=== PATIENT | female | born 1975 | race Two or more races ===

== ENCOUNTER 2024-10-23 18:07 | Inpatient (IN) | payer OTHER ==
[~2024-10-23] VITALS: Ht 154.9 cm; Wt 60.3 kg
[2024-10-23] MEDS ORDERED: ELIQUIS5 MG PO (18:58)
[2024-10-23] MEDS ORDERED: COZAAR25 MG PO (18:59)
[2024-10-23] MEDS ORDERED: ROSUVASTATIN CA10 MG PO (18:59)
[2024-10-23] MEDS ORDERED: 0.9 % SODIUM CHLORIDE 1,000 ML IV STA (19:42)
[2024-10-23] MEDS ORDERED: ONDANSETRON HCL 2 MG/ML VIAL IV STA (19:43)
[2024-10-23] MEDS ORDERED: MEPERIDINE HCL/PF 25 MG/ML VIAL IV ONE ×2 (19:45→23:15)
[2024-10-23] MEDS ORDERED: ONDANSETRON HCL 2 MG/ML VIAL ONE (19:49)
[2024-10-23] MEDS ORDERED: BARIUM SULFATE 450 ML ORAL.SUSP PO ONE (19:53)
[2024-10-23 20:08] LABS: HEMOGLOBIN 13.2 g/dL (12.0-15.00); MEAN CORPUSCULAR HEMOGLOBIN 32.4 pg (27.00-32.0); MEAN CORPUSCULAR HGB CONC 34.8 g/dl (32.0-36.0); PLATELET COUNT 303 K/uL (150-450); RED BLOOD COUNT 4.08 M/uL (4.00-6.00); RED CELL DISTRIBUTION WIDTH 13.4 % (11.5-14.5)
[2024-10-23 20:34] LABS: CALCIUM 9.9 mg/dL (8.5-10.1); CREATININE SERUM 0.83 mg/dL (0.55-1.02); GFR 72.47; POTASSIUM 3.83 mEq/L (3.5-5.1)
[2024-10-23] MEDS ORDERED: METRONIDAZOLE/SODIUM CHLORIDE 500 MG/100 ML PIGGYBACK IV ONE (23:00)
[2024-10-23] MEDS ORDERED: CIPROFLOXACIN IN 5 % DEXTROSE 400 MG/200 ML PIGGYBAG IV ONE (23:00)
[2024-10-23] MEDS ORDERED: HYOSCYAMINE SULFATE 0.125 MG TAB.SUBL PO ONE (23:30)
[2024-10-23] MEDS ORDERED: MORPHINE SULFATE 4 MG/ML CARTRIDGE IV PRN (23:30)
[2024-10-23] MEDS ORDERED: ACETAMINOPHEN 500 MG GEL..CAP PO PRN (23:30)
[2024-10-23] MEDS ORDERED: 0.9 % SODIUM CHLORIDE 1,000 ML IV SCH (23:30)
[2024-10-23] MEDS ORDERED: KETOROLAC TROMETHAMINE 15 MG VIAL IU ONE (23:30)
[2024-10-24] MEDS ORDERED: METRONIDAZOLE/SODIUM CHLORIDE 100 ML IV SCH (01:00)
[2024-10-24] MEDS ORDERED: HYOSCYAMINE SULFATE 0.125 MG TAB.SUBL ONE (01:19)
[2024-10-24 04:58] LABS: INR 1.11
[2024-10-24] MEDS ORDERED: APIXABAN 5 MG TABLET PO SCH (05:00)
[2024-10-24 06:09] LABS: PARTIAL THROMBOPLASTIN TIME < 20.0 SECONDS (22.0-34.0)
[2024-10-24] MEDS ORDERED: FAMOTIDINE/PF 20 MG/2 ML VIAL ONE (07:55)
[2024-10-24 08:36] VITALS: BP 139/79
[2024-10-24] MEDS ORDERED: CIPROFLOXACIN IN 5 % DEXTROSE 200 ML IV SCH (09:00)
[2024-10-24] MEDS ORDERED: FAMOTIDINE/PF 20 MG in 0.9 % SODIUM CHLORIDE 8 ML IV PUSH SCH (09:00)
[2024-10-24] MEDS ORDERED: LOSARTAN POTASSIUM 25 MG TABLET PO SCH (09:00)
[2024-10-24] MEDS ORDERED: ATORVASTATIN CALCIUM 20 MG TABLET PO SCH (09:00)
[2024-10-24 16:55] VITALS: BP 108/65
[2024-10-24 21:15] LABS: URINE APPEARANCE Clear; URINE BILIRRUBIN Negative (NEGATIVE); URINE BLOOD Negative; URINE COLOR Yellow; URINE GLUCOSE Negative (NEGATIVE); URINE KETONE 15 (NEGATIVE); URINE LEUKOCYTE Negative; URINE NITRATE Negative; URINE PROTEIN Negative (NEGATIVE)
[2024-10-24 21:18] LABS: URINE BACTERIA 26.9 uL (0.0-1933); URINE EPITHELIAL CELLS 17.8 uL (0.0-38.8); URINE RBC 9.1 uL (0.0-20.8); URINE WBC 5.6 uL (0.0-23.2)
[2024-10-24 21:21] LABS: URINE CAST 0.73 uL (0.0-1.40)
[2024-10-25 01:16] VITALS: BP 138/76; O2SAT 99
[2024-10-25 08:38] VITALS: BP 124/85; O2SAT 98
[2024-10-25] MEDS ORDERED: ONDANSETRON HCL 2 MG/ML VIAL IV PRN (11:00)
[2024-10-25 11:35] LABS: HEMATOCRIT 34.1 % (36.0-45.00); HEMOGLOBIN 11.3 g/dL (12.0-15.00); MEAN CELL VOLUME 96.3 fL (80.00-100.00); MEAN CORPUSCULAR HEMOGLOBIN 31.9 pg (27.00-32.0); MEAN CORPUSCULAR HGB CONC 33.2 g/dl (32.0-36.0); PLATELET COUNT 221 K/uL (150-450); RED BLOOD COUNT 3.54 M/uL (4.00-6.00); RED CELL DISTRIBUTION WIDTH 13.3 % (11.5-14.5)
[2024-10-25 12:45] VITALS: BP 129/81
[2024-10-25 12:52] LABS: CALCIUM 9.2 mg/dL (8.5-10.1); CREATININE SERUM 0.53 mg/dL (0.55-1.02); GFR 121.62; POTASSIUM 4.27 mEq/L (3.5-5.1)
[2024-10-25 17:46] VITALS: BP 141/80
[2024-10-26 02:05] VITALS: BP 130/77; O2SAT 98
[2024-10-26 08:36] VITALS: BP 119/73; O2SAT 97
[2024-10-26 17:09] VITALS: BP 142/85; O2SAT 95
== END 2024-10-27 01:00 | disposition left against medical advice (07) | DRG 392 ==
LOC: ER 18:09 → MEDI 23:20
PROVIDERS: Emergency Medicine; General Practice; ADMIT Student in an Organized Health Care Education/Training Program; ATTEND Student in an Organized Health Care Education/Training Program
PROC: BW21YZZ Computerized Tomography (CT Scan) of Abdomen and Pelvis using Other Contrast (ICD-10-PCS; principal; 2024-10-23)
DX: K57.92 Diverticulitis of intestine, part unspecified, without perforation or abscess without bleeding (principal)